=== PATIENT | female | born 1945 | race Caucasian/White ===

== ENCOUNTER 2017-08-27 11:53 | Emergency (ER) | payer MEDICARE ==
[2017-08-27] MEDS ORDERED: Aspirin 81 mg CHEW TAB* 81 MG TAB.CHEW PO ONE (12:06)
[2017-08-27 12:25] LABS: ABS Basophils 0.1 10^3/ul (0-0.2); ABS Eosinophils 0.1 10^3/ul (0-0.6); ABS Monocytes 0.5 10^3/ul (0-0.8); ABS Neutrophils 5.4 10^3/ul (1.5-7.7); ABS Nucleated RBC 0 10^3/ul; Eosinophil % 1.8 % (0-6); Hematocrit 44 % (35-47); Hemoglobin 15.1 g/dl (12.0-16.0); Lymphocyte % 24.6 % (25-47); Mean Corpuscular HGB Conc 34 g/dl (31-36); Mean Corpuscular Hemoglobin 32 pg (27-31); Mean Corpuscular Volume 94 fL (80-97); Mean Platelet Volume 8.7 um3 (7.4-10.4); Nucleated Red Blood Cells % 0; Platelet Count 155 10^3/ul (150-450); Red Blood Count 4.67 10^6/ul (4.0-5.4); Red Cell Distribution Width 13 % (10.5-15)
[2017-08-27 12:35] LABS: INR 0.99 (0.77-1.02)
[2017-08-27 12:42] LABS: EGFR Non-African American 41.6 (>60)
--- NOTE | 2017-08-27 13:02 | RAD ---
HISTORY: Chest pain, cough COMPARISONS: July 18, 2008 VIEWS: 1: frontal portable view of the chest at 12:36 PM FINDINGS: LINES AND TUBES: None. CARDIOMEDIASTINAL SILHOUETTE: The cardiomediastinal silhouette is normal for portable technique. PLEURA: The costophrenic angles are sharp. No pleural abnormalities are noted. LUNG PARENCHYMA: The lungs are clear. ABDOMEN: The upper abdomen is clear. There is no subphrenic gas. BONES AND SOFT TISSUES: The patient is status post anterior cervical fusion. IMPRESSION: NO ACTIVE CARDIOPULMONARY DISEASE.
[2017-08-27] MEDS ORDERED: NS 0.9% 1000 ML* 1,000 ML IV ONE (13:04)
[2017-08-27 13:58] LABS: Urine Appearance Clear; Urine Blood Negative (Negative); Urine Color Yellow; Urine Ketones Negative (Negative); Urine Protein Negative (Negative); Urine Specific Gravity 1.012 (1.010-1.030); Urine Urobilinogen Negative (Negative)
[2017-08-27 16:37] LABS: EGFR Non-African American 50.7 (>60)
--- NOTE | 2017-08-27 16:37 | ED ---
José Miguel Moran Jennifer, scribed for Jhoan Zhu MD on 08/27/17 at 1223 . HPI Chest Pain - HPI Summary HPI Summary: The patient is a 72 year old female who presents with chest pressure and heat for one week. The patient reports that she was taking care of her best friend who has been in the ED for five weeks for pneumonia. The patient believes she may have caught a chest cold from her friend and has been on antibiotics for 8.5 days. She was feeling better and her cough was going away, but her PCP told her to come to the ED to get a heart work up due to the chest pressure. The patient reports that lying flat and putting a weight on her chest alleviates the pressure. - History of Current Complaint Chief Complaint: EDChestPainROMI Hx Obtained From: Patient Onset/Duration: Started Weeks Ago - 1 week, Still Present, Worse Since - chest pressure for a couple days Timing: Constant Initial Severity: Mild Current Severity: Mild Pain Intensity: 2 Pain Scale Used: 0-10 Numeric Chest Pain Location: Diffuse Chest Pain Radiates: No Character: Burning, Pressure/Squeezing Aggravating Factor(s): Nothing Alleviating Factor(s): Position - Lying flat, Other: - Putting weight on her chest Associated Signs and Symptoms: Positive: Other: - chest pressure/burning, recent antbiotics, cough - Allergy/Home Medications Allergies/Adverse Reactions: Allergies Allergy/AdvReac Type Severity Reaction Status Date / Time tramadol Allergy Unknown Verified 08/27/17 11:55 Reaction Details Sulfa (Sulfonamide AdvReac Severe Yeast Verified 08/27/17 11:55 Antibiotics) Infections Vaginal and Oral methotrexate AdvReac Mild Rash Verified 08/27/17 11:55 pregabalin [From Lyrica] AdvReac Mild Body oder Verified 08/27/17 11:55 hydroxychloroquine AdvReac Unknown Rash Verified 08/27/17 11:55 ENVIRONMENTAL/SEASONAL Allergy HEADACHES Uncoded 08/27/17 11:55 Home Medications: Home Medications Cholecalciferol TAB* [Vitamin D TAB*] 400 unit PO DAILY 08/27/17 [History Confirmed 08/27/17] DULoxetine DR CAP* [Cymbalta CAP*] 40 mg PO DAILY 08/27/17 [History Confirmed ] Diazepam TAB(*) [Valium TAB(*)] 5 mg PO Q8H PRN 08/27/17 [History Confirmed ] Diphenoxylat/Atrop 2.5-0.025M* [Lomotil TAB*] 1 tab PO DAILY PRN 08/27/17 [ History Confirmed 08/27/17] Liothyronine TAB* [Cytomel TAB*] 5 mcg PO DAILY 08/27/17 [History Confirmed ] Losartan TAB* [Cozaar TAB*] 50 mg PO DAILY 08/27/17 [History Confirmed 08/27/17] Meclizine TAB* [Antivert 12.5 TAB*] 25 mg PO TID PRN 08/27/17 [History Confirmed 08/27/17] Multivitamins/Minerals TAB* [Theragran/minerals TAB*] 1 tab PO DAILY 08/27/17 [ History Confirmed 08/27/17] NIFEdipine ER TAB* [Procardia Xl TAB*] 30 mg PO QPM 08/27/17 [History Confirmed 08/27/17] Jeremiah-3 Fatty Acids (Nf) [Fish Oil (NF)] 1,000 mg PO DAILY 08/27/17 [History Confirmed 08/27/17] Potassium Chlor TAB* [Klor Con ER TAB*] 10 meq PO DAILY 08/27/17 [History Confirmed 08/27/17] Rosuvastatin (NF) [Crestor (NF)] 5 mg PO DAILY 08/27/17 [History Confirmed 08/27] Triamterene/HCTZ 37.5-25 MG* [Dyazide CAP*] 2 cap PO DAILY 08/27/17 [History Confirmed 08/27/17] PMH/Surg Hx/FS Hx/Imm Hx Endocrine/Hematology History: Reports: Hx Thyroid Disease - ON MEDS Cardiovascular History: Reports: Hx Hypercholesterolemia, Hx Hypertension - ON MEDS, Other Cardiovascular Problems/Disorders - Heart Disease Respiratory History: Reports: Hx Seasonal Allergies GI History: Reports: Hx Gastroesophageal Reflux Disease - ON MEDS, Hx Ulcer - YEARS AGO, History: Reports: Hx Kidney Stones - Hx OF 15 YRS AGO, PASSED ON OWN Musculoskeletal History: Reports: Hx Arthritis - TOES, FINGERS, BACK, NECK, Hx Fibromyalgia, Other Musculoskeletal History - Chronic Pain Sensory History: Reports: Hx Contacts or Glasses - GLASSES Denies: Hx Hearing Aid Opthamlomology History: Reports: Hx Contacts or Glasses - GLASSES Neurological History: Reports: Hx Headaches - DAILY, Hx Migraine - 5xMONTH, Other Neuro Impairments/Disorders - osteoarthritis, spondylosis with radiculopathy Psychiatric History: Reports: Hx Anxiety - ON MEDS, Hx Depression - Cancer History Hx Chemotherapy: No Hx Radiation Therapy: No - Surgical History Surgery Procedure, Year, and Place: 1960s 2 Dermabrasion. WISDOM TEETH. ANAL FISURE. 1989 CYST REMOVED FROM LEFT KNEE Hx Anesthesia Reactions: No Infectious Disease History: No Infectious Disease History: Denies: Traveled Outside the [place] in Last 30 Days - Family History Known Family History: Negative: Renal Disease - Social History Alcohol Use: None Alcohol Amount: 1-2 drinks per week Substance Use Type: Reports: None Substance Use Comment - Amount & Last Used: fentanyl and oxycodone Smoking Status (MU): Never Smoked Tobacco Have You Smoked in the Last Year: No Review of Systems Positive: Chest Pain - pressure/burning Positive: Cough All Other Systems Reviewed And Are Negative: Yes Physical Exam - Summary Physical Exam Summary: Appearance: Well-appearing, Well-nourished Skin: Warm Eyes: Normal ENT: Normal Neck: Supple, nontender Respiratory: Clear to auscultation Cardiovascular: Normal S1, S2. No murmurs, no rubs. Normal distal pulses in tibial and radial bilaterally. Bedside Ultrasound shows no evidence of paracardial effusion. Normal contractility. Abdomen: Soft, nontender Musculoskeletal: Normal, Strength/ROM Intact Neurological: Normal, A&Ox3 Psychiatric: Normal General: No acute distress Triage Information Reviewed: Yes Vital Signs On Initial Exam: Initial Vitals Temp Pulse Resp BP Pulse Ox 99.1 F 70 16 135/111 100 08/27/17 11:55 08/27/17 11:55 08/27/17 11:55 08/27/17 11:55 08/27/17 11:55 Vital Signs Reviewed: Yes Diagnostics - Vital Signs Vital Signs Temp Pulse Resp BP Pulse Ox 08/27/17 11:55 99.1 F 70 16 135/111 100 - Laboratory Lab Results: Lab Results 08/27/17 08/27/17 08/27/17 Range/Units 12:14 12:14 12:14 WBC 8.0 (3.5-10.8) 10^3/ul RBC 4.67 (4.0-5.4) 10^6/ul Hgb 15.1 (12.0-16.0) g/dl Hct 44 (35-47) % MCV 94 (80-97) fL MCH 32 H (27-31) pg MCHC 34 (31-36) g/dl RDW 13 (10.5-15) % Plt Count 155 (150-450) 10^3/ul MPV 8.7 (7.4-10.4) um3 Neut % (Auto) 66.6 (38-83) % Lymph % (Auto) 24.6 L (25-47) % Miller % (Auto) 6.2 (0-7) % Eos % (Auto) 1.8 (0-6) % Baso % (Auto) 0.8 (0-2) % Absolute Neuts (auto) 5.4 (1.5-7.7) 10^3/ul Absolute Lymphs (auto) 2.0 (1.0-4.8) 10^3/ul Absolute Monos (auto) 0.5 (0-0.8) 10^3/ul Absolute Eos (auto) 0.1 (0-0.6) 10^3/ul Absolute Basos (auto) 0.1 (0-0.2) 10^3/ul Absolute Nucleated RBC 0 10^3/ul Nucleated RBC % 0 INR (Anticoag Therapy) 0.99 (0.77-1.02) APTT 33.3 (26.0-36.3) seconds Sodium 138 L (139-145) mmol/L Potassium 3.3 L (3.5-5.0) mmol/L Chloride 105 (101-111) mmol/L Carbon Dioxide 22 (22-32) mmol/L Anion Gap 11 (2-11) mmol/L BUN 23 (6-24) mg/dL Creatinine 1.27 H (0.51-0.95) mg/dL Est GFR ( Amer) 53.5 (>60) Est GFR (Non-Af Amer) 41.6 (>60) BUN/Creatinine Ratio 18.1 (8-20) Glucose 120 H (70-100) mg/dL Lactic Acid (0.5-2.0) mmol/L Calcium 9.3 (8.6-10.3) mg/dL Magnesium 1.9 (1.9-2.7) mg/dL Total Bilirubin 0.40 (0.2-1.0) mg/dL AST 23 (13-39) U/L ALT 25 (7-52) U/L Alkaline Phosphatase 47 (34-104) U/L Troponin I 0.00 (<0.04) ng/mL Total Protein 6.6 (6.4-8.9) g/dL Albumin 4.0 (3.2-5.2) g/dL Globulin 2.6 (2-4) g/dL Albumin/Globulin Ratio 1.5 (1-3) Urine Color Urine Appearance Urine pH (5-9) Ur Specific [place] (1.010-1.030) Urine Protein (Negative) Urine Ketones (Negative) Urine Blood (Negative) Urine Nitrate (Negative) Urine Bilirubin (Negative) Urine Urobilinogen (Negative) Ur Leukocyte Esterase (Negative) Urine Glucose (Negative) 08/27/17 08/27/17 08/27/17 Range/Units 12:14 13:49 15:10 WBC (3.5-10.8) 10^3/ul RBC (4.0-5.4) 10^6/ul Hgb (12.0-16.0) g/dl Hct (35-47) % MCV (80-97) fL MCH (27-31) pg MCHC (31-36) g/dl RDW (10.5-15) % Plt Count (150-450) 10^3/ul MPV (7.4-10.4) um3 Neut % (Auto) (38-83) % Lymph % (Auto) (25-47) % Miller % (Auto) (0-7) % Eos % (Auto) (0-6) % Baso % (Auto) (0-2) % Absolute Neuts (auto) (1.5-7.7) 10^3/ul Absolute Lymphs (auto) (1.0-4.8) 10^3/ul Absolute Monos (auto) (0-0.8) 10^3/ul Absolute Eos (auto) (0-0.6) 10^3/ul Absolute Basos (auto) (0-0.2) 10^3/ul Absolute Nucleated RBC 10^3/ul Nucleated RBC % INR (Anticoag Therapy) (0.77-1.02) APTT (26.0-36.3) seconds Sodium Pending (139-145) mmol/L Potassium Pending (3.5-5.0) mmol/L Chloride Pending (101-111) mmol/L Carbon Dioxide Pending (22-32) mmol/L Anion Gap Pending (2-11) mmol/L BUN Pending (6-24) mg/dL Creatinine Pending (0.51-0.95) mg/dL Est GFR ( Amer) Pending (>60) Est GFR (Non-Af Amer) Pending (>60) BUN/Creatinine Ratio Pending (8-20) Glucose Pending (70-100) mg/dL Lactic Acid 2.7 H* (0.5-2.0) mmol/L Calcium Pending (8.6-10.3) mg/dL Magnesium (1.9-2.7) mg/dL Total Bilirubin (0.2-1.0) mg/dL AST (13-39) U/L ALT (7-52) U/L Alkaline Phosphatase (34-104) U/L Troponin I 0.00 (<0.04) ng/mL Total Protein (6.4-8.9) g/dL Albumin (3.2-5.2) g/dL Globulin (2-4) g/dL Albumin/Globulin Ratio (1-3) Urine Color Yellow Urine Appearance Clear Urine pH 5.0 (5-9) Ur Specific [place] 1.012 (1.010-1.030) Urine Protein Negative (Negative) Urine Ketones Negative (Negative) Urine Blood Negative (Negative) Urine Nitrate Negative (Negative) Urine Bilirubin Negative (Negative) Urine Urobilinogen Negative (Negative) Ur Leukocyte Esterase Negative (Negative) Urine Glucose Negative (Negative) 08/27/17 Range/Units 15:10 WBC (3.5-10.8) 10^3/ul RBC (4.0-5.4) 10^6/ul Hgb (12.0-16.0) g/dl Hct (35-47) % MCV (80-97) fL MCH (27-31) pg MCHC (31-36) g/dl RDW (10.5-15) % Plt Count (150-450) 10^3/ul MPV (7.4-10.4) um3 Neut % (Auto) (38-83) % Lymph % (Auto) (25-47) % Miller % (Auto) (0-7) % Eos % (Auto) (0-6) % Baso % (Auto) (0-2) % Absolute Neuts (auto) (1.5-7.7) 10^3/ul Absolute Lymphs (auto) (1.0-4.8) 10^3/ul Absolute Monos (auto) (0-0.8) 10^3/ul Absolute Eos (auto) (0-0.6) 10^3/ul Absolute Basos (auto) (0-0.2) 10^3/ul Absolute Nucleated RBC 10^3/ul Nucleated RBC % INR (Anticoag Therapy) (0.77-1.02) APTT (26.0-36.3) seconds Sodium (139-145) mmol/L Potassium (3.5-5.0) mmol/L Chloride (101-111) mmol/L Carbon Dioxide (22-32) mmol/L Anion Gap (2-11) mmol/L BUN (6-24) mg/dL Creatinine (0.51-0.95) mg/dL Est GFR ( Amer) (>60) Est GFR (Non-Af Amer) (>60) BUN/Creatinine Ratio (8-20) Glucose (70-100) mg/dL Lactic Acid 1.5 (0.5-2.0) mmol/L Calcium (8.6-10.3) mg/dL Magnesium (1.9-2.7) mg/dL Total Bilirubin (0.2-1.0) mg/dL AST (13-39) U/L ALT (7-52) U/L Alkaline Phosphatase (34-104) U/L Troponin I (<0.04) ng/mL Total Protein (6.4-8.9) g/dL Albumin (3.2-5.2) g/dL Globulin (2-4) g/dL Albumin/Globulin Ratio (1-3) Urine Color Urine Appearance Urine pH (5-9) Ur Specific [place] (1.010-1.030) Urine Protein (Negative) Urine Ketones (Negative) Urine Blood (Negative) Urine Nitrate (Negative) Urine Bilirubin (Negative) Urine Urobilinogen (Negative) Ur Leukocyte Esterase (Negative) Urine Glucose (Negative) Result Diagrams: 08/27/17 12:14 08/27/17 12:14 Lab Statement: Any lab studies that have been ordered have been reviewed, and results considered in the medical decision making process. - Radiology CXR Xray Interpretation: No Acute Changes - NO ACTIVE CARDIOPULMONARY DISEASE. Dr. Zhu has reviewed this report. Radiology Interpretation Completed By: Radiologist - EKG 1202 Cardiac Rate: NL EKG Rhythm: Sinus Rhythm - 94 BPM Ectopy: PVCs - multiple EKG Interpretation: No obvious ischemic ST changes 1622 Cardiac Rate: NL EKG Rhythm: Sinus Rhythm - 71 BPM EKG Interpretation: Normal P axis, normal EKG Re-Evaluation - Re-Evaluation Second Eval Change: Improved - Patient much improved after medications and workup. The emergency department. Patient has had 2 negative troponins, I have a very low suspicion for coronary artery disease in this patient, given her heart score of 3 given her age and history of hypertension and hyperlipidemia treated with medications. No prior history of cardiac disease. Patient feels comfortable monitoring her symptoms at home. Chest Pain Course/Dx - Course Assessment/Plan: Heart score 3, low suspicion for ACS given normal EKG and history and physical. I instructed the patient to follow-up with her casing trimmer within one week and [facility] for any worsening or concerning symptoms. Patient is happy that she is being discharged, and is thankful for care. Patient reports improved symptoms , denies any chest managers but currently, and understands that she needs to follow-up with a casing trimmer. SHe agrees and understands discharge instructions. - Diagnoses Provider Diagnoses: Chest pain Discharge - Sign-Out/Discharge Documenting (check all that apply): Discharge/Admit/Transfer - Discharge Plan Condition: Improved Disposition: HOME Patient Education Materials: Chest Pain (ED) Referrals: Pardeep Corea MD [Medical Doctor] - Segundo Pete MD [Primary Care Provider] - Rosalina Silva MD [Medical Doctor] - Additional Instructions: PLEASE MAKE AN APPOINTMENT FIRST THING IN THE MORNING TO BE SEEN BY A COARSE WIRE DRAWER WITHIN 3-5 DAYS PLEASE RETURN IMMEDIATELY TO THE EMERGENCY ROOM IF YOU HAVE ANY WORSENING OR CONCERNING SYMPTOMS PLEASE MAKE AN APPOINTMENT FIRST THING IN THE MORNING TO BE SEEN BY YOUR PRIMARY CARE DOCTOR WITHIN 1 WEEK - Billing Disposition and Condition Condition: IMPROVED Disposition: HOME The documentation as recorded by the José Miguel coughlin Jennifer accurately reflects the service I personally performed and the decisions made by me, Jhoan Zhu MD.
[2017-08-27 17:09] VITALS: BP 137/76
== END 2017-08-27 17:08 | disposition home or self-care (01) ==
LOC: ED 11:53
DX: R07.89 Other chest pain (principal); Z88.5 Allergy status to narcotic agent; Z88.2 Allergy status to sulfonamides; Z88.8 Allergy status to other drugs, medicaments and biological substances
CPT/HCPCS: 36415; 71045; 80048; 80053; 81003; 83605; 83735; 84484; 85025; 85610; 85730; 93005; 96360; 96361; 99282; A9270-GY

== ENCOUNTER 2017-11-08 10:41 | Emergency (ER) | payer MEDICARE ==
[2017-11-08] MEDS ORDERED: Tetan/Diph/Pertus SYR(Tdap)* 0.5 ML SYR(BOOSTRIX) use SYR IM ONE (11:31)
[2017-11-08] MEDS ORDERED: oxyCODONE TAB* 5 MG TAB PO ONE (11:53)
--- NOTE | 2017-11-08 12:47 | RAD ---
INDICATION: Left forearm pain COMPARISON: Left elbow same date TECHNIQUE: AP and lateral views were obtained. FINDINGS: There is no acute forearm fracture. There is a radial head fracture described in a separate report. The soft tissues of the forearm are normal. IMPRESSION: NO ACUTE FOREARM FRACTURE. RADIAL HEAD FRACTURE DESCRIBED IN SEPARATE REPORT.
--- NOTE | 2017-11-08 12:52 | RAD ---
INDICATION: Bilateral elbow injuries COMPARISON: None TECHNIQUE: AP, lateral, and oblique views of each elbow were obtained. FINDINGS: Right elbow: There are no acute bony findings. There are findings of lateral and medial epicondylitis. There is mild spurring coronoid process. There is no joint effusion. There is mild edema in the posterior soft tissues near the olecranon and distal humerus. Left elbow: There is a nondisplaced fracture the radial head. There are no other fractures. There are findings of lateral epicondylitis. There is fat pad displacement consistent with joint effusion. IMPRESSION: 1. Degenerative and inflammatory changes about the right elbow. Soft tissue swelling. No acute bony findings or joint effusion. 2. Radial head fracture left elbow with joint effusion. Underlying degenerative changes.
--- NOTE | 2017-11-08 13:09 | ED ---
Upper Extremity Pain - HPI Summary HPI Summary: 72-year-old female presents with left elbow pain since yesterday. She states that she fell down some poorly made stairs. She states she tried to protect her head so she fell onto her left elbow. She has abrasion. No loss consciousness. Did not hit head. Denies any neck pain. No other injury. She is not diabetic. Does not know when last tetanus is. - History of Current Complaint Chief Complaint: EDShoulderClavicLeora Stated Complaint: LT ARM INJURY Time Seen by Provider: 11/08/17 11:05 - Allergies/Home Medications Allergies/Adverse Reactions: Allergies Allergy/AdvReac Type Severity Reaction Status Date / Time tramadol Allergy Unknown Verified 11/08/17 11:21 Reaction Details Sulfa (Sulfonamide AdvReac Severe Yeast Verified 11/08/17 11:21 Antibiotics) Infections Vaginal and Oral methotrexate AdvReac Mild Rash Verified 11/08/17 11:21 pregabalin [From Lyrica] AdvReac Mild Body oder Verified 11/08/17 11:21 hydroxychloroquine AdvReac Unknown Rash Verified 11/08/17 11:21 ENVIRONMENTAL/SEASONAL Allergy HEADACHES Uncoded 11/08/17 11:21 PMH/Surg Hx/FS Hx/Imm Hx Endocrine/Hematology History: Reports: Hx Thyroid Disease - ON MEDS Cardiovascular History: Reports: Hx Hypercholesterolemia, Hx Hypertension - ON MEDS, Other Cardiovascular Problems/Disorders - Heart Disease Respiratory History: Reports: Hx Seasonal Allergies GI History: Reports: Hx Gastroesophageal Reflux Disease - ON MEDS, Hx Ulcer - YEARS AGO, History: Reports: Hx Kidney Stones - Hx OF 15 YRS AGO, PASSED ON OWN Musculoskeletal History: Reports: Hx Arthritis - TOES, FINGERS, BACK, NECK, Hx Fibromyalgia, Other Musculoskeletal History - Chronic Pain Sensory History: Reports: Hx Contacts or Glasses - GLASSES Denies: Hx Hearing Aid Opthamlomology History: Reports: Hx Contacts or Glasses - GLASSES Neurological History: Reports: Hx Headaches - DAILY, Hx Migraine - 5xMONTH, Other Neuro Impairments/Disorders - osteoarthritis, spondylosis with radiculopathy Psychiatric History: Reports: Hx Anxiety - ON MEDS, Hx Depression - Cancer History Hx Chemotherapy: No Hx Radiation Therapy: No - Surgical History Surgery Procedure, Year, and Place: 1960s 2 Dermabrasion. WISDOM TEETH. ANAL FISURE. 1989 CYST REMOVED FROM LEFT KNEE Hx Anesthesia Reactions: No Infectious Disease History: No Infectious Disease History: Denies: Traveled Outside the [place] in Last 30 Days - Family History Known Family History: Negative: Renal Disease - Social History Alcohol Use: Weekly Alcohol Amount: Once per week Substance Use Type: Reports: None Substance Use Comment - Amount & Last Used: fentanyl and oxycodone Smoking Status (MU): Never Smoked Tobacco Have You Smoked in the Last Year: No Review of Systems Negative: Fever Negative: Chest Pain Negative: Shortness Of Breath Positive: Myalgia - left elbow pain All Other Systems Reviewed And Are Negative: Yes Physical Exam Triage Information Reviewed: Yes Vital Signs On Initial Exam: Initial Vitals Temp Pulse Resp BP Pulse Ox 99.1 F 84 14 136/68 98 11/08/17 10:43 11/08/17 10:43 11/08/17 10:43 11/08/17 10:43 11/08/17 10:43 Vital Signs Reviewed: Yes Appearance: Positive: Well-Appearing Skin: Positive: Other - 4cm superficial laceration to right elbow with ecchymosis Head/Face: Positive: Normal Head/Face Inspection Eyes: Positive: Normal, Conjunctiva Clear ENT: Positive: Pharynx normal Respiratory/Lung Sounds: Positive: Clear to Auscultation, Breath Sounds Present Cardiovascular: Positive: Normal, RRR Musculoskeletal: Positive: Strength/ROM Intact - right elbow, Limited @ - left elbow, Other - tenderness left elbow, good pulses, able to wiggle fingers, capillary refill<2 secs Neurological: Positive: Normal Psychiatric: Positive: Normal Procedures - Laceration/Wound Repair 1 Location: Other - right elbow Description: Irregular Length, Depth and Shape: 4cm superficial Irrigated w/ Saline (ccs): 100 Closure: Skin Adhesive Diagnostics - Vital Signs Vital Signs Temp Pulse Resp BP Pulse Ox 11/08/17 10:43 99.1 F 84 14 136/68 98 - Laboratory Lab Statement: Any lab studies that have been ordered have been reviewed, and results considered in the medical decision making process. - Radiology elbow Xray Interpretation: Positive (See Comments) - IMPRESSION: 1. Degenerative and inflammatory changes about the right elbow. Soft tissue swelling. No acute bony findings or joint effusion. 2. Radial head fracture left elbow with joint effusion. Underlying degenerative changes. Radiology Interpretation Completed By: Radiologist Course/Dx - Course Course Of Treatment: 72-year-old female presents with left elbow pain since yesterday. She states that she fell down some poorly made stairs. She states she tried to protect her head so she fell onto her left elbow. She has abrasion. No loss consciousness. Did not hit head. Denies any neck pain. No other injury. She is not diabetic. Does not know when last tetanus is. on exam has tenderness left elbow. neurovascular intact. has superficial laceration right elbow that cleaned and placed glue. xray shows radial fracture. placed in sling. patient is already on pain meds from pain clinic. patient will follow up with ortho. patient understand and agrees with plan. - Diagnoses Differential Diagnosis/HQI/PQRI: Positive: Fracture (Closed), Strain, Sprain Provider Diagnoses: Radial head fracture Discharge - Sign-Out/Discharge Documenting (check all that apply): Patient Departure - Discharge Plan Condition: Good Disposition: HOME Patient Education Materials: Elbow Fracture (ED) Referrals: Segundo Pete MD [Primary Care Provider] - Lyric Urena MD [Medical Doctor] - Additional Instructions: Keep elbow in sling Call ortho office to set up appointment for follow up Use normal pain medication Ice, elevate Return to ED if develop any new or worsening symptoms - Billing Disposition and Condition Condition: GOOD Disposition: Home
[2017-11-08 13:25] VITALS: BP 129/68
== END 2017-11-08 13:23 | disposition home or self-care (01) ==
LOC: ED 10:41
DX: S51.012A Laceration without foreign body of left elbow, initial encounter (principal); W10.9XXA Fall (on) (from) unspecified stairs and steps, initial encounter; Y92.9 Unspecified place or not applicable; E78.00 Pure hypercholesterolemia, unspecified; E07.9 Disorder of thyroid, unspecified; F41.9 Anxiety disorder, unspecified; Z23 Encounter for immunization; Z79.899 Other long term (current) drug therapy; Z88.2 Allergy status to sulfonamides; Z88.5 Allergy status to narcotic agent; Z88.8 Allergy status to other drugs, medicaments and biological substances
CPT/HCPCS: 12002; 90471; 90715; 99282; A9270-GY

== ENCOUNTER 2018-12-23 23:43 | Emergency (ER) | payer MEDICARE ==
[2018-12-24 00:32] LABS: ABS Basophils 0.1 10^3/ul (0-0.2); ABS Eosinophils 0.2 10^3/ul (0-0.6); ABS Lymphocytes 2.4 10^3/ul (1.0-4.8); ABS Monocytes 0.6 10^3/ul (0-0.8); ABS Neutrophils 4.1 10^3/ul (1.5-7.7); Eosinophil % 2.1 %; Hematocrit 47 % (35-47); Lymphocyte % 33.3 %; Mean Corpuscular HGB Conc 34 g/dL (31-36); Mean Corpuscular Hemoglobin 32 pg (27-31); Mean Corpuscular Volume 94 fL (80-97); Mean Platelet Volume 8.9 fL (7.4-10.4); Nucleated Red Blood Cells % 0.1; Platelet Count 165 10^3/uL (150-450); Red Blood Count 5.01 10^6 /uL (3.70-4.87); Red Cell Distribution Width 14 % (10-15); White Blood Count 7.2 10^3/uL (3.5-10.8)
[2018-12-24 00:39] LABS: INR 1.03 (0.82-1.09)
[2018-12-24 00:52] LABS: Albumin 4.3 g/dL (3.2-5.2); Albumin/Globulin Ratio 1.7 (1-3); Calcium 9.8 mg/dL (8.6-10.3); EGFR African American 54.6 (>60); EGFR Non-African American 45.2 (>60); Globulin 2.6 g/dL (2-4); Potassium 3.8 mmol/L (3.5-5.0); Total Bilirubin 0.4 mg/dL (0.2-1.0); Total Protein 6.9 g/dL (6.4-8.9)
--- NOTE | 2018-12-24 04:42 | ED ---
Upper Extremity Pain - History of Current Complaint Chief Complaint: EDChestPainROMI Stated Complaint: CHEST PAIN PER PT Time Seen by Provider: 12/24/18 00:30 - Allergies/Home Medications Allergies/Adverse Reactions: Allergies Allergy/AdvReac Type Severity Reaction Status Date / Time tramadol Allergy Unknown Verified 12/23/18 23:58 Reaction Details Sulfa (Sulfonamide AdvReac Severe Yeast Verified 12/23/18 23:58 Antibiotics) Infections Vaginal and Oral methotrexate AdvReac Mild Rash Verified 12/23/18 23:58 pregabalin [From Lyrica] AdvReac Mild See Comment Verified 12/23/18 23:58 hydroxychloroquine AdvReac Unknown Rash Verified 12/23/18 23:58 Home Medications: Home Medications Aspirin/Acetaminophen/Caffeine [Excedrin Migraine Caplet] 1 each PO DAILY PRN [History Confirmed 12/24/18] Esomeprazole Magnesium [Nexium 24Hr] 40 mg PO DAILY 12/24/18 [History Confirmed 12/24/18] Liothyronine TAB* [Cytomel TAB*] 5 mcg PO DAILY 12/24/18 [History Confirmed ] Nystatin [Nyamyc] 100,000 unit TOPICAL BID 12/24/18 [History Confirmed 12/24/18] Potassium Chlor TAB* [Klor Con ER TAB*] 10 meq PO DAILY 12/24/18 [History Confirmed 12/24/18] Promethazine TAB* [Phenergan TAB*] 12.5 mg PO BID PRN 12/24/18 [History Confirmed 12/24/18] PMH/Surg Hx/FS Hx/Imm Hx Endocrine/Hematology History: Reports: Hx Thyroid Disease - HYPO Denies: Hx Diabetes Cardiovascular History: Reports: Hx Hypercholesterolemia, Hx Hypertension - ON MEDS, Other Cardiovascular Problems/Disorders - Heart Disease Denies: Hx Pacemaker/ICD Respiratory History: Reports: Hx Seasonal Allergies, Hx Sleep Apnea GI History: Reports: Hx Gastroesophageal Reflux Disease - ON MEDS, Hx Ulcer - YEARS AGO, History: Reports: Hx Kidney Stones - IN THE PAST Denies: Hx Renal Disease Musculoskeletal History: Reports: Hx Arthritis, Hx Fibromyalgia, Other Musculoskeletal History - Chronic Pain Sensory History: Reports: Hx Contacts or Glasses - GLASSES Denies: Hx Hearing Aid Opthamlomology History: Reports: Hx Contacts or Glasses - GLASSES Neurological History: Reports: Hx Headaches, Hx Migraine, Other Neuro Impairments/Disorders - osteoarthritis, spondylosis with radiculopathy Psychiatric History: Reports: Hx Anxiety - ON MEDS, Hx Depression Denies: Hx Panic Disorder - Cancer History Hx Chemotherapy: No Hx Radiation Therapy: No - Surgical History Surgery Procedure, Year, and Place: 1960s 2 Dermabrasion. 1960s WISDOM TEETH. 1970s ANAL FISURE. 1989 CYST REMOVED FROM LEFT KNEE. RIGHT BIG TOE 2014. CSP SURGERY 2017. FX LEFT ELBOW 2018. Right Wrist Dupuytreus Contracture Release by Dr. Lucas at [facility] 07/13/18' Hx Anesthesia Reactions: No Infectious Disease History: No Infectious Disease History: Denies: Traveled Outside the [place] in Last 30 Days - Family History Known Family History: Negative: Renal Disease - Social History Alcohol Use: Weekly Alcohol Amount: One drink per week Substance Use Type: Reports: None Substance Use Comment - Amount & Last Used: fentanyl and oxycodone Smoking Status (MU): Never Smoked Tobacco Have You Smoked in the Last Year: No Review of Systems All Other Systems Reviewed And Are Negative: Yes Physical Exam Triage Information Reviewed: Yes Vital Signs On Initial Exam: Initial Vitals Temp Pulse Resp BP Pulse Ox 98.1 F 100 16 131/83 94 12/23/18 23:45 12/23/18 23:45 12/23/18 23:45 12/23/18 23:45 12/23/18 23:45 Vital Signs Reviewed: Yes Diagnostics - Vital Signs Vital Signs Temp Pulse Resp BP Pulse Ox 12/24/18 02:55 81 9 145/88 94 12/24/18 02:25 78 8 136/84 95 12/24/18 02:04 87 94 12/24/18 01:25 88 18 137/101 95 12/24/18 01:00 81 17 94 12/24/18 00:55 91 19 146/94 94 12/24/18 00:26 96 15 94 12/24/18 00:25 98 20 166/96 94 12/23/18 23:45 98.1 F 100 16 131/83 94 - Laboratory Lab Results: Lab Results 12/24/18 12/24/18 12/24/18 Range/Units 00:25 00:25 00:25 WBC 7.2 (3.5-10.8) 10^3/uL RBC 5.01 H (3.70-4.87) 10^6 /uL Hgb 16.0 (12.0-16.0) g/dL Hct 47 (35-47) % MCV 94 (80-97) fL MCH 32 H (27-31) pg MCHC 34 (31-36) g/dL RDW 14 (10-15) % Plt Count 165 (150-450) 10^3/uL MPV 8.9 (7.4-10.4) fL Neut % (Auto) 56.0 % Lymph % (Auto) 33.3 % Cuming % (Auto) 7.7 % Eos % (Auto) 2.1 % Baso % (Auto) 0.9 % Absolute Neuts (auto) 4.1 (1.5-7.7) 10^3/ul Absolute Lymphs (auto) 2.4 (1.0-4.8) 10^3/ul Absolute Monos (auto) 0.6 (0-0.8) 10^3/ul Absolute Eos (auto) 0.2 (0-0.6) 10^3/ul Absolute Basos (auto) 0.1 (0-0.2) 10^3/ul Absolute Nucleated RBC 0.0 10^3/ul Nucleated RBC % 0.1 INR (Anticoag Therapy) 1.03 (0.82-1.09) Sodium 140 (135-145) mmol/L Potassium 3.8 (3.5-5.0) mmol/L Chloride 107 (101-111) mmol/L Carbon Dioxide 26 (22-32) mmol/L Anion Gap 7 (2-11) mmol/L BUN 26 H (6-24) mg/dL Creatinine 1.18 H (0.51-0.95) mg/dL Est GFR ( Amer) 54.6 (>60) Est GFR (Non-Af Amer) 45.2 (>60) BUN/Creatinine Ratio 22.0 H (8-20) Glucose 91 (70-100) mg/dL Calcium 9.8 (8.6-10.3) mg/dL Total Bilirubin 0.40 (0.2-1.0) mg/dL AST 24 (13-39) U/L ALT 23 (7-52) U/L Alkaline Phosphatase 76 (34-104) U/L Troponin I 0.00 (<0.04) ng/mL Total Protein 6.9 (6.4-8.9) g/dL Albumin 4.3 (3.2-5.2) g/dL Globulin 2.6 (2-4) g/dL Albumin/Globulin Ratio 1.7 (1-3) 12/24/18 Range/Units 03:51 WBC (3.5-10.8) 10^3/uL RBC (3.70-4.87) 10^6 /uL Hgb (12.0-16.0) g/dL Hct (35-47) % MCV (80-97) fL MCH (27-31) pg MCHC (31-36) g/dL RDW (10-15) % Plt Count (150-450) 10^3/uL MPV (7.4-10.4) fL Neut % (Auto) % Lymph % (Auto) % Cuming % (Auto) % Eos % (Auto) % Baso % (Auto) % Absolute Neuts (auto) (1.5-7.7) 10^3/ul Absolute Lymphs (auto) (1.0-4.8) 10^3/ul Absolute Monos (auto) (0-0.8) 10^3/ul Absolute Eos (auto) (0-0.6) 10^3/ul Absolute Basos (auto) (0-0.2) 10^3/ul Absolute Nucleated RBC 10^3/ul Nucleated RBC % INR (Anticoag Therapy) (0.82-1.09) Sodium (135-145) mmol/L Potassium (3.5-5.0) mmol/L Chloride (101-111) mmol/L Carbon Dioxide (22-32) mmol/L Anion Gap (2-11) mmol/L BUN (6-24) mg/dL Creatinine (0.51-0.95) mg/dL Est GFR ( Amer) (>60) Est GFR (Non-Af Amer) (>60) BUN/Creatinine Ratio (8-20) Glucose (70-100) mg/dL Calcium (8.6-10.3) mg/dL Total Bilirubin (0.2-1.0) mg/dL AST (13-39) U/L ALT (7-52) U/L Alkaline Phosphatase (34-104) U/L Troponin I 0.00 (<0.04) ng/mL Total Protein (6.4-8.9) g/dL Albumin (3.2-5.2) g/dL Globulin (2-4) g/dL Albumin/Globulin Ratio (1-3) Result Diagrams: 12/24/18 00:25 12/24/18 00:25 Lab Statement: Any lab studies that have been ordered have been reviewed, and results considered in the medical decision making process. Course/Dx - Course Course Of Treatment: 73 year old female with left shoulder pain radiating to chest and upper left arm. moderately improved. workup essentially negative including serial troponins. discharged to home. follow up with PCP, follow up sooner for any worsening symptoms. - Diagnoses Provider Diagnoses: Shoulder pain Discharge ED - Sign-Out/Discharge Documenting (check all that apply): Patient Departure - discharge Patient Received Moderate/Deep Sedation with Procedure: No - Discharge Plan Condition: Stable Disposition: HOME Patient Education Materials: Chest Pain (ED), Shoulder Pain (ED) Referrals: Segundo Pete MD [Primary Care Provider] - 3 Days Additional Instructions: Please follow up with your primary care physician within three days. Please return to ED for any new or worsening symptoms. - Billing Disposition and Condition Condition: STABLE Disposition: Home - Attestation Statements Document Initiated by Colby: Yes Documenting Scribe: Lakeisha López Provider For Whom Colby is Documenting (Include Credential): Dr. Preethi Palmer MD Scribe Attestation: Lakeisha Moran scribed for Dr. Preethi Palmer MD on 12/24/18 at 0612. Scribe Documentation Reviewed: Yes Provider Attestation: The documentation as recorded by the Lakeisha coughlin accurately reflects the service I personally performed and the decisions made by me, Dr. Preethi Palmer MD Status of Scribe Document: Viewed
[2018-12-24 04:52] VITALS: BP 140/86
== END 2018-12-24 04:51 | disposition home or self-care (01) ==
LOC: ED 23:43
DX: M25.512 Pain in left shoulder (principal); E03.9 Hypothyroidism, unspecified; E78.00 Pure hypercholesterolemia, unspecified; I10 Essential (primary) hypertension; K21.9 Gastro-esophageal reflux disease without esophagitis; F41.9 Anxiety disorder, unspecified; F32.9 Major depressive disorder, single episode, unspecified; Z79.82 Long term (current) use of aspirin; Z79.899 Other long term (current) drug therapy; Z88.5 Allergy status to narcotic agent; Z88.2 Allergy status to sulfonamides; Z88.8 Allergy status to other drugs, medicaments and biological substances
CPT/HCPCS: 36415; 71046; 80053; 84484; 85025; 85610; 93005; 99283